=== PATIENT | male | born 2000 | race African-American/Black ===

== ENCOUNTER 2021-11-19 06:02 | Emergency (ER) | payer SELFPAY ==
[~2021-11-19] VITALS: Ht 177.8 cm; Wt 69.6 kg
[2021-11-19] MEDS ORDERED: IBUPROFEN 400MG TABLET PO ONE (08:30)
[2021-11-19 09:00] VITALS: BP 133/72
== END 2021-11-19 10:08 | disposition home or self-care (01) ==
LOC: ER 06:02
DX: M25.531 Pain in right wrist (principal); M79.641 Pain in right hand
CPT/HCPCS: 29125; 73110; 73130; 99284; Z7610